=== PATIENT | male | born 2000 | race African-American/Black ===

== ENCOUNTER 2023-04-27 08:15 | Emergency (ER) | payer SELFPAY ==
[~2023-04-27] VITALS: Ht 187 cm; Wt 122.4 kg
--- NOTE | 2023-04-27 08:51 | ED Upper Extremity ---
General Chief Complaint: Upper Extremity Stated Complaint: LT HAND PAIN/INJ Source: patient Exam Limitations: no limitations (SAMI ZABALA) History of Present Illness Date Seen by Provider: Apr 27, 2023 Time Seen by Provider: 08:30 Initial Comments Pt is a 22 year old male, who presents with left hand injury with CC of pain in hand. Pt had swelling over the left posterior 4th and 5th metacarpals with MCP joint involvement . Pt had brisk capillary refill, intact motor and sensation. Pt reports that his hand got slammed in a door Wednesday morning at 1 AM. Pt stated, that is hasn't really bothered him till this morning while working at [employer]. Pt expressed mild distress during physical exam. (SAMI ZABALA) Allergies and Home Medications Patient Home Medication List Home Medication List Reviewed: Yes (PARKER JOE MD) Hydrocodone/Acetaminophen (Hydrocodone-Acetamin 5-325 mg) 5 Mg-325 Mg Tablet, 1 TAB PO Q4H PRN for PAIN-MODERATE (5-7) Prescribed by: PARKER NEFF on 04/27/23 0936 Review of Systems Constitutional: no symptoms reported Respiratory: no symptoms reported Gastrointestinal: no symptoms reported Musculoskeletal: see HPI Skin: no symptoms reported Psychiatric/Neurological: No Symptoms Reported (SAMI ZABALA) Past Xubyqcp-Jbiqqt-Qtufpi Hx Patient Social History Tobacco Use?: No Substance use?: No Alcohol Use?: No Pt feels they are or have been: No (SAMI ZABALA) Physical Exam Vital Signs Vital Signs - First Documented 04/27/23 08:29 Temp 36.3 Pulse 53 Resp 16 B/P (MAP) 141/55 (83) Pulse Ox 96 (PARKER JOE MD) Vital Signs Capillary Refill : (SAMI ZABALA) Height, Weight, BMI Height: '" Weight: lbs. oz. kg; BMI Method: General Appearance: mild distress HEENT: PERRL/EOMI, normal ENT inspection Neck: non-tender Cardiovascular: normal peripheral pulses, no gallop, no JVD, no murmur Respiratory: chest non-tender, lungs clear, normal breath sounds, no respiratory distress, no accessory muscle use Gastrointestinal: normal bowel sounds, non tender, soft, no organomegaly, no pulsatile mass, abnormal bowel sounds Back: normal inspection Shoulder: normal inspection Elbow/Forearm: normal inspection Wrist: Yes normal inspection Hand: Left, limited ROM (limited movement of the left 4th and 5th digits due to pain.), swelling ( left 4th and 5th metacarpls) Neurologic/Psychiatric: no motor/sensory deficits, alert, normal mood/affect, oriented x 3 Skin: normal color, warm/dry Lymphatic: no adenopathy (SAMI ZABALA) Procedures/Interventions Splinting and Joint Reduction : Pre-Proc Neuro Vasc Exam: normal Post-Proc Neuro Vasc Exam: normal [place] wrap: Yes Hand-Made Type: orthoglass Splint Application: Short Arm (PARKER JOE MD) Progress/Results/Core Measures Results/Orders My Orders Orders - PARKER JOE MD Hand, Left, 3 Views (04/27/23 08:37) (PARKER JOE MD) Vital Signs/I&O 04/27/23 04/27/23 08:29 09:42 Temp 36.3 36.3 Pulse 53 53 Resp 16 16 B/P (MAP) 141/55 (83) 141/55 Pulse Ox 96 96 (PARKER JOE MD) Progress Progress Note : Progress Note Patient was examined along with Dhiraj Parekh, MS 2. X-rays of the left hand were obtained, reviewed, and interpreted by me. There was a slightly angulated fracture of the mid left fifth metacarpal without displacement. No other injuries were identified. Radiologist interpretation was reviewed and was similar. A ulnar short arm splint was fashioned out of Ortho-Glass. Patient was prescribed hydrocodone for pain. Discharge instructions were reviewed. See discharge instructions for further discussion. (PARKER JOE MD) Diagnostic Imaging Diagonstic Imaging: Xray Plain Films/CT/US/NM/MRI: hand Comments NAME: CAROLA DELEON Tim MED REC#: [id number] PT STATUS: REG ER : 2000 PHYSICIAN: PARKER JOE MD ADMIT DATE: 04/27/23/ER Draft Date of Exam:04/27/23 HAND, LEFT, 3 VIEWS INDICATION: Left hand injury with pain. TECHNIQUE: AP, oblique, and lateral views of the left hand were obtained. FINDINGS: There is a mildly angulated fracture involving the midshaft of the 5th metacarpal. There is no evidence of extension into the joint spaces. No other acute fracture is identified. IMPRESSION: Slightly angulated fracture involving the midshaft of the 5th metacarpal. Dictated on workstation # [id number] Dict: 04/27/23 0856 Trans: 04/27/23 0903 [id number] Interpreted by: RICHARD VITAL MD (PARKER JOE MD) Departure Impression Primary Impression: Closed fracture of fifth metacarpal bone of left hand Qualified Codes: S62.357A - Nondisplaced fracture of shaft of fifth metacarpal bone, left hand, initial encounter for closed fracture Disposition: 01 HOME, SELF-CARE Condition: Improved Departure-Patient Inst. Decision time for Depature: 09:29 (PARKER JOE MD) Referrals: NO,LOCAL PHYSICIAN (PCP) Primary Care Physician WIL BAÑUELOS MD, MICHAEL P MD Patient Instructions: Hand Fracture ED Add. Discharge Instructions: Rest, elevation, and 20-minute intervals of icing should help reduce pain and swelling. You should follow-up with an orthopedic provider as soon as possible. Contact information for Dr. Hernandez and Dr. Bañuelos is below. You may also check with your insurance carrier and receive a list of preferred providers. The orthopedic provider should monitor the healing of your hand and possibly place a cast or provide a prefabricated removable splint. For mild pain use Tylenol (acetaminophen) up to 1000 mg every 6 hours as needed. For more severe pain you may use the hydrocodone as prescribed. Do not drive or operate machinery while using hydrocodone as it may cause drowsiness. Keep your splint clean and dry. Return to the emergency room if you have any problems or concerns about your hand. All discharge instructions reviewed with patient and/or family. Voiced understanding. Scripts Hydrocodone/Acetaminophen (Hydrocodone-Acetamin 5-325 mg) 5 Mg-325 Mg Tablet 1 TAB PO Q4H PRN for PAIN-MODERATE (5-7), #15 TAB Prov: PARKER JOE MD 6/20/23 Medical Student Attestation and Attending Note: I have personally interviewed and examined this patient along with Dhiraj Parekh, MS 2. I have reviewed student documentation including history, physical, and assessments. I agree with the documentation except where otherwise noted. Exam: General: Alert, oriented, no significant distress HEENT: Normocephalic and atraumatic Extremities: Left hand demonstrates ulnar swelling and tenderness. Distal exam in the fingers is unremarkable. Fingers are warm with intact sensation. Skin: Warm, normal color, no rashes Neuropsych: Alert and oriented with no focal deficits (PARKRE JOE MD) SAMI ZABALA Apr 27, 2023 08:51 PARKER JOE MD Apr 27, 2023 09:32
--- NOTE | 2023-04-27 09:04 | Diagnostic Imaging Report ---
INDICATION: Left hand injury with pain. TECHNIQUE: AP, oblique, and lateral views of the left hand were obtained. FINDINGS: There is a mildly angulated fracture involving the midshaft of the 5th metacarpal. There is no evidence of extension into the joint spaces. No other acute fracture is identified. IMPRESSION: Slightly angulated fracture involving the midshaft of the 5th metacarpal. Dictated by: Dictated on workstation # [id number]
[2023-04-27] MEDS ORDERED: ACHD5005 PO (09:35)
[2023-04-27 09:42] VITALS: BP 141/55
== END 2023-04-27 09:42 | disposition home or self-care (01) ==
LOC: ER 08:20
DX: S62.327A Displaced fracture of shaft of fifth metacarpal bone, left hand, initial encounter for closed fracture (principal); W23.0XXA Caught, crushed, jammed, or pinched between moving objects, initial encounter
CPT/HCPCS: 29125; 73130